=== PATIENT | female | born 1955 | race Hispanic/Latino ===

== ENCOUNTER 2017-03-19 16:00 | Emergency (ER) | payer OTHER ==
[2017-03-19 16:00] VITALS: BMI 22.7
[2017-03-19 16:10] VITALS: TEMP 98
[2017-03-19] MEDS ORDERED: Sodium Chloride 0.9% 500 ML IV STA (16:28)
--- NOTE | 2017-03-19 16:44 | ED PDOC ---
Arrival/HPI - General Historian: Patient <Roberto Hermanew - Last Filed: 03/19/17 19:38> <Conor Veras - Last Filed: 03/19/17 20:31> - General Chief Complaint: Headache Time Seen by Provider: 03/19/17 16:12 - History of Present Illness Narrative History of Present Illness (Text): 03/19/17 16:39 This is a 61 yo F with no PMH that presents with chief complaint of headache that she has had on and off for the past month. It is pressure like in quality, located primarily behind her eyes and on the left. She has seen her PMD about this who prescribed abx for suspected sinus infection. She has also been given sumatriptan with no relief. She has minimal relief with OTC medications. She denies any visual changes, aura, numbness, tingling, vomiting or trauma. Admits to some nausea and decreased PO intake but is drinking plenty of water. 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 PMD: Dr Mehta (sp?) (VirgilI[facility]) Past Medical History - Provider Review Nursing Documentation Reviewed: Yes - Infectious Disease Hx of Infectious Diseases: None - Pulmonary Hx Asthma: Yes - Hematological/Oncological Hx Cancer: Yes (left partial mastectomy 2008) Hx Chemotherapy: No - Musculoskeletal/Rheumatological Hx Falls: No - Psychiatric Hx Anxiety: Yes Hx Substance Use: No - Surgical History Hx Mastectomy: Yes (Partial left) Other/Comment: vein stripping b/l legs 35 yrs ago - Anesthesia Hx Anesthesia: Yes Hx Anesthesia Reactions: No <Iban Herman - Last Filed: 03/19/17 19:38> Family/Social History - Physician Review Nursing Documentation Reviewed: Yes Family/Social History: No Known Family HX Smoking Status: Light Smoker < 10 Cigarettes Daily Hx Alcohol Use: Yes (social) Hx Substance Use: No <Iban Herman - Last Filed: 03/19/17 19:38> Allergies/Home Meds <Iban Herman - Last Filed: 03/19/17 19:38> <Conor Veras - Last Filed: 03/19/17 20:31> Allergies/Adverse Reactions: Allergies No Known Allergies Allergy (Verified 03/19/17 16:06) Home Medications: Home Meds Medication Instructions Recorded Confirmed SUMAtriptan [Imitrex] 100 mg PO DAILY 03/19/17 03/19/17 Sulfamethoxazole/Trimethoprim 1 tab PO DAILY 03/19/17 03/19/17 [Bactrim DS 800 mg-160 mg] Review of Systems - Physician Review All systems were reviewed & negative as marked: Yes - Review of Systems Constitutional: Normal. absent: Fatigue, Fevers Eyes: Normal. absent: Vision Changes, Photophobia, Eye Pain ENT: Normal. absent: Hearing Changes, Tinnitus Respiratory: Normal. absent: SOB, Cough Cardiovascular: Normal. absent: Chest Pain, Palpitations Gastrointestinal: Normal. absent: Abdominal Pain, Stool Changes Genitourinary Female: Normal. absent: Dysuria, Frequency Musculoskeletal: Back Pain Skin: Normal. absent: Rash, Pruritis Neurological: Headache, Dizziness. absent: Focal Weakness, Gait Changes, Speech Changes, Facial Droop, Disequilibrium Endocrine: Normal Hemo/Lymphatic: Normal Psychiatric: Normal <Iban Herman - Last Filed: 03/19/17 19:38> Physical Exam Vital Signs Reviewed: Yes Temperature: Afebrile Blood Pressure: Normal Pulse: Regular Respiratory Rate: Normal Appearance: Positive for: Non-Toxic, Uncomfortable Pain Distress: Moderate Mental Status: Positive for: Alert and Oriented X 3 - Systems Exam Head: Present: Atraumatic, Normocephalic Pupils: Present: PERRL Extroacular Muscles: Present: EOMI Mouth: Present: Moist Mucous Membranes Respiratory/Chest: Present: Clear to Auscultation, Good Air Exchange. No: Respiratory Distress Cardiovascular: Present: Regular Rate and Rhythm, Normal S1, S2. No: Murmurs Abdomen: Present: Normal Bowel Sounds. No: Tenderness, Distention Upper Extremity: Present: NORMAL PULSES, Neurovascularly Intact Lower Extremity: Present: NORMAL PULSES, Neurovascularly Intact Neurological: Present: Speech Normal, Motor Func Grossly Intact Skin: Present: Warm, Dry Psychiatric: Present: Alert, Oriented x 3 <Iban Herman - Last Filed: 03/19/17 19:38> Medical Decision Making <Iban Herman - Last Filed: 03/19/17 19:38> <Conor Veras - Last Filed: 03/19/17 20:31> ED Course and Treatment: 03/19/17 16:48 61 yo F with no PMH, no hx of migraines, here with [facility] x 1 month with no relief. Plan: - labs - CT head - Toradol, reglan - fluid bolus - Reassess and disposition 03/19/17 17:46 CT head as read by Dr Montaño HEMORRHAGE: No acute parenchymal, subarachnoid nor extra-axial hemorrhage. BRAIN: No no evidence of large acute infarct. There may be some minimal chronic periventricular white matter ischemic changes. Mild generalized volume loss. VENTRICLES: No evidence of obstructive hydrocephalus. (into so much eft acute CALVARIUM: No acute calvarial fractures. There is a small its semi lunar shaped sclerotic the bony density arising from the outer table left paramedian occipital calvarium which measures approximately 19 mm x 10 mm. This could represent a small exostosis. PARANASAL SINUSES: Visualized paranasal sinuses well-developed and currently well-aerated MASTOID AIR CELLS: Unremarkable as visualized. No inflammatory changes. OTHER FINDINGS: None. IMPRESSION: No evidence of acute intracranial hemorrhage. Suspect minimal chronic periventricular white matter ischemic changes. Mild generalized volume loss. 03/19/17 17:46 Pt States that she feels better with reglan and toradol 03/19/17 18:19 Will get ESR 03/19/17 19:27 ESR normal 03/19/17 19:29 Pain improved. Results discussed with pt. Comfortable with discharge home and follow up with primary care doctor and neurologist. Will give fioricet and instructed to cont sumatriptan as needed as well. (Iban Herman) Patient seen and examined with resident. Came up with treatment and disposition plan with resident. The patient is a 61 year old female, who presents to the emergency department for evaluation of intermittent headache for the past several months. Additional HPI details as noted by the resident. She is being followed by pmd and is planning to follow up with neurology. Physical examination reveals no acute findings. Head CT ordered to rule out intracranial abnormalities vs. tension headache. Patient given Reglan, Toradol and IV Fluids for symptomatic control. 03/19/17 20:28 Sed rate is normal, makes GCA and other autoimmune etiology much less likely. Feeling improvement in headache - will d/c on fioricet. (Conor Veras) - Lab Interpretations Lab Results: 03/19/17 16:51 03/19/17 16:51 Lab Results 03/19/17 18:15: ESR 5 03/19/17 16:51: Sodium 139, Potassium 4.0, Chloride 104, Carbon Dioxide 28, Anion Gap 11, BUN 10, Creatinine 0.8, Est GFR ( Amer) > 60, Est GFR (Non- Af Amer) > 60, Random Glucose 84, Calcium 9.2, Total Bilirubin 0.4, AST 40 H, ALT 31, Alkaline Phosphatase 49, Total Protein 6.8, Albumin 4.0, Globulin 2.8, Albumin/Globulin Ratio 1.4 03/19/17 16:51: WBC 5.2 D, RBC 4.30, Hgb 13.3, Hct 39.4, MCV 91.6, MCH 30.9, MCHC 33.8, RDW 13.6, Plt Count 271, MPV 10.4, Gran % 49.6 L, Lymph % (Auto) 41.1 H, Gillespie % (Auto) 7.9 H, Eos % (Auto) 1.0 L, Baso % (Auto) 0.4, Gran # 2.57 , Lymph # 2.1, Gillespie # 0.4, Eos # 0.1, Baso # 0.02 - RAD Interpretation Radiology Orders: 03/19/17 16:27 HEAD W/O CONTRAST [CT] Stat - Medication Orders Current Medication Orders: Discontinued Medications Acetaminophen/Butalbital/Caffeine (Fioricet) 1 tab PO ONCE STA Stop: 03/19/17 18:17 Last Admin: 03/19/17 19:15 Dose: 1 tab Sodium Chloride (Sodium Chloride 0.9%) 500 mls @ 999 mls/hr IV .Q31M STA Stop: 03/19/17 16:58 Last Admin: 03/19/17 16:37 Dose: 999 mls/hr Ketorolac Tromethamine (Toradol) 30 mg IVP STAT STA Stop: 03/19/17 16:29 Last Admin: 03/19/17 16:36 Dose: 30 mg Metoclopramide HCl (Reglan) 10 mg IVP STAT STA Stop: 03/19/17 16:29 Last Admin: 03/19/17 16:36 Dose: 10 mg <Iban Herman - Last Filed: 03/19/17 19:38> - PA / SOCIAL SECURITY ASSESSOR / Resident Statement ALBERTO has reviewed & agrees with the documentation as recorded. / has examined the patient and agrees with the treatment plan. - Scribe Statement The provider has reviewed the documentation as recorded by the Scribe <Conor Veras - Last Filed: 03/19/17 20:31> - Scribe Statement Lilliana Meyer Provider Scribe Attestation: All medical record entries made by the Scribe were at my direction and personally dictated by me. I have reviewed the chart and agree that the record accurately reflects my personal performance of the history, physical exam, medical decision making, and the department course for this patient. I have also personally directed, reviewed, and agree with the discharge instructions and disposition. (Conor Veras) Disposition/Present on Arrival - Present on Arrival Any Indicators Present on Arrival: No History of DVT/PE: No History of Uncontrolled Diabetes: No Urinary Catheter: No History of Decub. Ulcer: No History Surgical Site Infection Following: None - Disposition Have Diagnosis and Disposition been Completed?: Yes Disposition Time: 19:32 <Iban Herman - Last Filed: 03/19/17 19:38> <Conor Veras - Last Filed: 03/19/17 20:31> - Disposition Diagnosis: Headache Disposition: HOME/ ROUTINE Condition: IMPROVED Discharge Instructions (ExitCare): Acute Headache (ED) Additional Instructions: You were evaluated for persistent headache. Continue to take sumatriptan as needed for pain and start Fioricet as needed. Follow up with primary care doctor and neurologist. Please return to ED with any new or worsening of symptoms. Prescriptions: Acetaminophen/Butalbital/Caf [Fioricet] 1 - 2 tab PO Q6H PRN #15 tab PRN Reason: Headache Referrals: Garrett Rhodes, [Primary Care Provider] - Follow up with primary
[2017-03-19 16:58] LABS: ADD MANUAL DIFF? NO
[2017-03-19 17:01] LABS: BASO # 0.02 K/mm3 (0.0-2.0); BASO % 0.4 % (0.0-3.0); EOS # 0.1 (0.0-0.7); GRAN # 2.57 (1.4-6.5); GRAN % 49.6 % (50.0-68.0); HEMATOCRIT 39.4 % (36.0-48.0); LYMPH # 2.1 (1.2-3.4); LYMPH % 41.1 % (22.0-35.0); MEAN CELL VOLUME 91.6 fL (80.0-105.0); MEAN CORPUSCULAR HEMOGLOBIN 30.9 pg (25.0-35.0); MEAN CORPUSCULAR HGB CONC 33.8 g/dl (31.0-37.0); MEAN PLATELET VOLUME 10.4 fl (7.0-11.0); MONO # 0.4 (0.1-0.6); MONO % 7.9 % (1.0-6.0); PLATELET COUNT 271 10^3/uL (120.0-450.0); RED CELL DISTRIBUTION WIDTH 13.6 % (11.5-14.5); WHITE BLOOD COUNT 5.2 10^3/ul (4.5-11.0)
[2017-03-19 17:17] LABS: ALB/GLOB RATIO 1.4 (1.1-1.8); ALKALINE PHOSPHATASE 49 U/L (38-133); ALT/SGPT 31 U/L (7-56); AST/SGOT 40 U/L (15-39); BILIRUBIN,TOTAL 0.4 mg/dL (0.2-1.3); BLOOD UREA NITROGEN 10 mg/dL (7-21); CALCIUM 9.2 mg/dL (8.4-10.5); CARBON DIOXIDE 28 mmol/L (21-33); CHLORIDE 104 mmol/L (98-107); GFR AFRICAN-AMERICAN > 60; GLUCOSE,RANDOM 84 mg/dL (70-110); SODIUM 139 mmol/L (132-148); TOTAL PROTEIN 6.8 g/dL (5.8-8.3)
--- NOTE | 2017-03-19 17:39 | CT ---
PROCEDURE: CT HEAD WITHOUT CONTRAST. HISTORY: headache COMPARISON: None available. TECHNIQUE: Axial computed tomography images were obtained through the head/brain without intravenous contrast. Radiation dose: Total exam DLP = 774.23 mGy-cm. This CT exam was performed using one or more of the following dose reduction techniques: Automated exposure control, adjustment of the mA and/or kV according to patient size, and/or use of iterative reconstruction technique. FINDINGS: HEMORRHAGE: No acute parenchymal, subarachnoid nor extra-axial hemorrhage. BRAIN: No no evidence of large acute infarct. There may be some minimal chronic periventricular white matter ischemic changes. Mild generalized volume loss. VENTRICLES: No evidence of obstructive hydrocephalus. (into so much eft acute CALVARIUM: No acute calvarial fractures. There is a small its semi lunar shaped sclerotic the bony density arising from the outer table left paramedian occipital calvarium which measures approximately 19 mm x 10 mm. This could represent a small exostosis. PARANASAL SINUSES: Visualized paranasal sinuses well-developed and currently well-aerated MASTOID AIR CELLS: Unremarkable as visualized. No inflammatory changes. OTHER FINDINGS: None. IMPRESSION: No evidence of acute intracranial hemorrhage. Suspect minimal chronic periventricular white matter ischemic changes. Mild generalized volume loss.
[2017-03-19] MEDS ORDERED: Apap-Butalbital-Caffeine 325-50-40mg Tab PO STA (18:16)
[2017-03-19 18:26] VITALS: RESP 16; O2SAT 96
[2017-03-19 19:45] VITALS: BP 115/49; PULSE 62
== END 2017-03-19 19:45 | disposition home or self-care (01) ==
LOC: ED 16:00
DX: R51 Headache (principal)
CPT/HCPCS: 70450; 80053; 85025; 85651; 86140; 96374; 96375; 99285; J1885; J2765; J7040